=== PATIENT | female | born 2005 | race Caucasian/White ===

== ENCOUNTER 2024-10-26 16:35 | Emergency (ER) | payer BC ==
[2024-10-26] MEDS ORDERED: Ipratropium/Albuterol 3 ML NEB ONE (17:12)
[2024-10-26] MEDS ORDERED: diphenhydrAMINE 25 MG CAP ONE (17:12)
== END 2024-10-26 17:39 | disposition home or self-care (01) ==
LOC: MADERS 16:35
DX: T78.40XA Allergy, unspecified, initial encounter (principal)
CPT/HCPCS: J7620